=== PATIENT | female | born 1995 | race Caucasian/White ===

== ENCOUNTER 2016-11-19 18:10 | Emergency (ER) | payer BC ==
[2016-11-19 19:40] VITALS: BP 108/87
[2016-11-19] MEDS ORDERED: Ondansetron ODT TAB* 4 MG PO ONE (21:09)
[2016-11-19] MEDS ORDERED: Sucralfate TAB* 1 GM PO ONE (21:09)
[2016-11-19] MEDS ORDERED: LORazepam TAB(*) 1 MG PO ONE (21:10)
[2016-11-19 21:53] LABS: Urine Bacteria Absent (Absent); Urine Bilirubin Negative (Negative); Urine Glucose Negative (Negative); Urine Nitrite Negative (Negative)
--- NOTE | 2016-11-20 07:00 | ED ---
Mio, DoctorIvania, scribed for Florinda Meeks MD on 11/19/16 at 2132 . GI/ HPI - HPI Summary HPI Summary: 21 year old female arrived to [facility] c/o stomach pain and indigestion that has been regular but was exacerbated today. She reports that for the past few days, she has been having intermittent episodes of discomfort and reports waking up multiple times throughout the night with a "dull, fullness feeling." She indicates that her pain was exacerbated every time she ate throughout the day. She has been taking Pepto Bismol and managing her symptoms though diet changes for the past four years, however, she was recently prescribed Omeprazol (40mg) by her GI. She additionally reported anxiety related to regular nausea/vomiting (for which she recently restarted Zoloft), and a PMHx of an eating disorder. She is a student at [employer] and does not have a PCP in the area. - History of Current Complaint Chief Complaint: EDAbdPain Stated Complaint: INDIGESTION-ABD AND CHEST PAIN Hx Obtained From: Patient Onset/Duration: Started Days Ago Timing: Intermittent Severity: Moderate Current Severity: Moderate Pain Intensity: 2 Pain Characteristics: Dull, Aching Associated Signs and Symptoms: Positive: Other: - Heartburn. Negative: Nausea Aggravating Factor(s): Food, Liquids PMH/Surg Hx/FS Hx/Imm Hx GI History: Reports: Hx Irritable Bowel - recently diagnosed with Irritable Bowel by GI Psychiatric History: Reports: Hx Eating Disorder Infectious Disease History: No Infectious Disease History: Denies: Traveled Outside the [place] in Last 30 Days - Family History Known Family History: Positive: Unknown - Social History Occupation: Student Substance Use Type: Reports: None Smoking Status (MU): Never Smoked Tobacco Review of Systems Negative: Fever Positive: Abdominal Pain - dull abdominal pain , Other - abdominal discomfort . Negative: Diarrhea All Other Systems Reviewed And Are Negative: Yes Physical Exam Triage Information Reviewed: Yes Vital Signs On Initial Exam: Initial Vitals Temp Pulse Resp BP Pulse Ox 98.8 F 102 20 130/85 98 11/19/16 18:15 11/19/16 18:15 11/19/16 18:15 11/19/16 18:15 11/19/16 18:15 Vital Signs Reviewed: Yes Appearance: Positive: Well-Appearing, No Pain Distress, Thin Skin: Positive: Warm, Skin Color Reflects Adequate Perfusion, Dry Eyes: Positive: EOMI, KAIN ENT: Positive: Pharynx normal, TMs normal Neck: Positive: Supple, Nontender Respiratory/Lung Sounds: Positive: Clear to Auscultation, Breath Sounds Present. Negative: Rales, Rhonchi, Wheezes Cardiovascular: Positive: RRR. Negative: Murmur, Rub Abdomen Description: Positive: Nontender, Soft. Negative: Distended, Guarding Bowel Sounds: Positive: Present Musculoskeletal: Positive: Strength/ROM Intact. Negative: Edema Left, Edema Right Neurological: Positive: Sensory/Motor Intact, Alert, Oriented to Person Place, Time, CN Intact II-III Psychiatric: Positive: Affect/Mood Appropriate Diagnostics - Vital Signs Vital Signs Temp Pulse Resp BP Pulse Ox 11/19/16 19:38 99.2 F 94 18 108/87 100 11/19/16 18:15 98.8 F 102 20 130/85 98 - Laboratory Lab Results: Lab Results 11/19/16 Range/Units 19:41 Urine Color Yellow Urine Appearance Clear Urine pH 7.0 (5-9) Ur Specific [place] 1.010 (1.010-1.030) Urine Protein Negative (Negative) Urine Ketones Negative (Negative) Urine Blood 1+ H (Negative) Urine Nitrate Negative (Negative) Urine Bilirubin Negative (Negative) Urine Urobilinogen Negative (Negative) Ur Leukocyte Esterase Negative (Negative) Urine WBC (Auto) Trace(0-5/hpf) (Absent) Urine RBC (Auto) 1+(3-5/hpf) H (Absent) Ur Squamous Epith Cells Present H (Absent) Urine Bacteria Absent (Absent) Urine Glucose Negative (Negative) Lab Statement: Any lab studies that have been ordered have been reviewed, and results considered in the medical decision making process. GIGU Course/Dx - Course Course Of Treatment: pt with hx of irritable bowel with worsened symptoms of gerd. started pt on carafate, - Diagnoses Provider Diagnoses: Irritable bowel Discharge - Discharge Plan Condition: Stable Disposition: HOME Prescriptions: Ondansetron ODT TAB* [Zofran 4 MG Odt TAB*] 4 mg PO Q6H PRN #20 tab.odt PRN Reason: Nausea Sucralfate SUSP (NF) [Carafate SUSP (NF)] 1 gm PO Q6H #120 ml Patient Education Materials: Irritable Bowel Syndrome (ED) Referrals: [facility] YULISA Brown [Primary Care Provider] - The documentation as recorded by the Doctor snider Tahera accurately reflects the service I personally performed and the decisions made by me, Florinda Meeks MD.
== END 2016-11-19 23:30 | disposition home or self-care (01) ==
LOC: ED 18:10
DX: K58.9 Irritable bowel syndrome, unspecified (principal); R12 Heartburn; R07.9 Chest pain, unspecified; R10.9 Unspecified abdominal pain
CPT/HCPCS: 81003; 81015; 99282; A9270-GY

== ENCOUNTER 2018-01-15 16:24 | Emergency (ER) | payer BC ==
[2018-01-15 17:01] VITALS: BP 125/78
--- NOTE | 2018-01-15 17:01 | UC ---
Dizzy HPI HPI Summary: Periods of lightheadedness, "head pressure" lasting minutes to hours starting a couple weeks ago. Was more intermittent at first (not every day), but now periods of symptoms happening every day. Denies sensation of vertigo, no actual syncope, sometimes happens with chest pressure or racing heartbeat. Is about to graduate and is open to the idea that this could be stress, but she tried klonopin without relief. Also tried withholding nexium today without improvement , will try to hold bentyl tomorrow. No medication or supplement changes recently. Due to IBS pt eats at least 6 times per day, has not been trying to diet. Pt tearful when describing stress around college graduation. - History Of Current Complaint Chief Complaint: UCHeadache Stated Complaint: DIZZINESS Time Seen by Provider: 01/15/18 16:43 Hx Obtained From: Patient Hx Last Menstrual Period: now ?: No Onset/Duration: Gradual Onset, Lasting Weeks, Still Present Timing: Constant Severity Initially: Mild Severity Currently: Moderate Pain Intensity: 5 Character: Lightheaded, Weak Aggravating Factor(s): Nothing Alleviating Factor(s): Nothing Associated Signs And Symptoms: Positive: Nausea. Negative: Decreased Oral Intake, Change In Medication, Change In Diet - Allergies/Home Medications Allergies/Adverse Reactions: Allergies Allergy/AdvReac Type Severity Reaction Status Date / Time No Known Allergies Allergy Verified 01/15/18 16:37 Home Medications: Home Medications Dicyclomine CAP* [Bentyl CAP*] 1 tab PO DAILY 01/15/18 [History Confirmed ] Esomeprazole(NF) [Nexium(NF)] 1 tab PO DAILY 01/15/18 [History Confirmed ] Lactobacil 2-S.thermo-Bifido 1 [Vsl#3 Packet] 1 dose PO DAILY 01/15/18 [History Confirmed 01/15/18] clonazePAM [Clonazepam] 1 tab PO DAILY 01/15/18 [History Confirmed 01/15/18] PMH/Surg Hx/FS Hx/Imm Hx Other GI/ History: IBS - Surgical History Surgical History: None - Family History Known Family History: Positive: Unknown - Social History Alcohol Use: Occasionally Substance Use Type: None Smoking Status (MU): Never Smoked Tobacco Review of Systems Constitutional: Negative Skin: Negative Eyes: Negative ENT: Negative Respiratory: Negative Cardiovascular: Negative Gastrointestinal: Negative Genitourinary: Negative Motor: Negative Neurovascular: Negative Musculoskeletal: Negative Neurological: Other - dizzy Psychological: Anxious Is Patient Immunocompromised?: No All Other Systems Reviewed And Are Negative: Yes Physical Exam Triage Information Reviewed: Yes Appearance: Well-Appearing, No Pain Distress, Well-Nourished Vital Signs: Initial Vital Signs Temp 99.3 F 01/15/18 16:34 Pulse 64 01/15/18 16:34 Resp 12 01/15/18 16:34 BP 97/68 01/15/18 16:34 Pulse Ox 100 01/15/18 16:34 Vital Signs Reviewed: Yes Eye Exam: Normal Eyes: Positive: Conjunctiva Clear ENT Exam: Normal ENT: Positive: Normal ENT inspection, Hearing grossly normal, Pharynx normal, TMs normal, Other - no palpable problems with thyroid Dental Exam: Normal Neck exam: Normal Neck: Positive: Supple, Nontender, No Lymphadenopathy Respiratory Exam: Normal Respiratory: Positive: Chest non-tender, Lungs clear, Normal breath sounds, No respiratory distress, No accessory muscle use Cardiovascular Exam: Normal Cardiovascular: Positive: RRR, No Murmur Musculoskeletal Exam: Normal Musculoskeletal: Positive: Strength Intact, ROM Intact Neurological: Positive: Alert, Muscle Tone Normal, Other: - Good balance and coordination; rhomberg negative Psychological Exam: Normal Skin Exam: Normal Dizzy Course/Dx - Differential Dx/Diagnosis Provider Diagnoses: dizziness. anxiety Discharge - Sign-Out/Discharge Documenting (check all that apply): Discharge/Admit/Transfer - Discharge Plan Condition: Stable Disposition: HOME Patient Education Materials: Dizziness (ED), Anxiety (ED) Referrals: [facility] [Outside] - 2 Days Additional Instructions: Please follow up with [facility] to discuss bloodwork -- it is likely that this is anxiety, but some more testing should be done to make sure you don't have a problem with your thyroid or your blood cells. If you are still having symptoms after graduation, see your primary care provider when you get home. - Billing Disposition and Condition Condition: STABLE Disposition: HOME
== END 2018-01-15 17:32 | disposition home or self-care (01) ==
LOC: UCEAST 16:24
DX: R42 Dizziness and giddiness (principal); F41.9 Anxiety disorder, unspecified; R11.0 Nausea; K58.9 Irritable bowel syndrome, unspecified
CPT/HCPCS: 93005; 99211; G0463